=== PATIENT | male | born 2000 ===

== ENCOUNTER 2025-07-24 20:34 | Emergency (ER) | payer OTHER ==
[~2025-07-24] VITALS: Ht 170.2 cm; Wt 63.5 kg
[2025-07-24] MEDS ORDERED: AMOCLA875 PO (21:34)
[2025-07-24 22:30] LABS: Influenza A, PCR NEGATIVE (NEGATIVE); Influenza B, PCR NEGATIVE (NEGATIVE); Resp Syncytial Virus, PCR NEGATIVE (NEGATIVE); SARS-Cov-2 (COVID-19) PCR, MMC NEGATIVE (NEGATIVE)
== END 2025-07-24 22:01 | disposition home or self-care (01) ==
LOC: ER 20:34
PROVIDERS: Student in an Organized Health Care Education/Training Program
DX: H66.92 Otitis media, unspecified, left ear (principal); J06.9 Acute upper respiratory infection, unspecified; B97.89 Other viral agents as the cause of diseases classified elsewhere; F84.0 Autistic disorder
CPT/HCPCS: 87637; 99283; A9270